=== PATIENT | female | born 2000 | race Caucasian/White ===

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

== ENCOUNTER 2018-03-08 13:05 | Emergency (ER) | payer OTHER ==
[2018-03-08 13:16] VITALS: BP 121/76
--- NOTE | 2018-03-08 14:15 | UC ---
Back Pain HPI - HPI Summary HPI Summary: HAS HAD SEVERAL MONTHS OF LOW LEVEL LOW BACK PAIN. STATES MAYBE STARTED AFTER FALLING OFF A HORSE. WAS NOT TOO BAD UNTIL TODAY WHEN SHE PUSHED A HEAVY PALLET AT WORK AND FELT SOMETHING POP IN THE LEFT LOW BACK. HAS SOME PAIN RADIATING DOWN THE BACK OF HER LEFT LEG. DENIES NUMBNESS/TINGLING. NO SADDLE ANESTHESIA OR WEAKNESS. NO LOSS OF BOWEL/BLADDER CONTROL. - History of Current Complaint Chief Complaint: UCBackPain Stated Complaint: BACK INJURY Time Seen by Provider: 03/08/18 13:37 Hx Obtained From: Patient Hx Last Menstrual Period: 02/21/18 Onset/Duration: Gradual Onset, Lasting Weeks, Worse Since - TODAY Timing: Constant Severity Initially: Mild Severity Currently: Moderate Pain Intensity: 8 Pain Scale Used: 0-10 Numeric Back Pain: Is Discrete @ - LEFT LOW BACK Character: Sharp Aggravating Factor(s): Movement Alleviating Factor(s): Rest Associated Signs And Symptoms: Negative: Swelling, Redness, Bruising, Weakness, Numbness, Tingling, Bladder Incontinence, Bowel Incontinence - Allergies/Home Medications Allergies/Adverse Reactions: Allergies Allergy/AdvReac Type Severity Reaction Status Date / Time No Known Allergies Allergy Verified 03/08/18 13:16 PMH/Surg Hx/FS Hx/Imm Hx Previously Healthy: Yes - Surgical History Surgical History: None - Family History Known Family History: Negative: Cardiac Disease, Hypertension, Diabetes - Social History Alcohol Use: None Substance Use Type: None Smoking Status (MU): Never Smoked Tobacco Have You Smoked in the Last Year: No - Immunization History Most Recent Influenza Vaccination: 2015 Review of Systems All Other Systems Reviewed And Are Negative: Yes Constitutional: Positive: Negative Skin: Positive: Negative Respiratory: Positive: Negative Cardiovascular: Positive: Negative Gastrointestinal: Positive: Negative Musculoskeletal: Positive: Arthralgia, Myalgia Physical Exam Triage Information Reviewed: Yes Appearance: Well-Appearing, No Pain Distress, Well-Nourished Vital Signs: Initial Vital Signs Temp 97.8 F 03/08/18 13:06 Pulse 80 03/08/18 13:06 Resp 17 03/08/18 13:06 BP 121/76 03/08/18 13:06 Pulse Ox 100 03/08/18 13:06 Vital Signs Reviewed: Yes Eyes: Positive: Conjunctiva Clear ENT: Positive: Hearing grossly normal Neck: Positive: Supple Respiratory: Positive: No respiratory distress, No accessory muscle use Cardiovascular: Positive: Pulses Normal Abdomen Description: Positive: Soft Musculoskeletal: Positive: ROM Intact, No Edema, Other: Neurological: Positive: Alert, Other: - POS LEFT STRAIGHT LEG RAISE Psychological: Positive: Normal Response To Family, Age Appropriate Behavior Skin: Negative: Rashes Diagnostics - Radiology LUMBAR SPINE XRAYS Radiology Interpretation Completed By: Radiologist Summary of Radiographic Findings: UNREMARKABLE Back Pain Course/Dx - Differential Dx/Diagnosis Provider Diagnoses: ACUTE LOW BACK STRAIN Discharge - Sign-Out/Discharge Documenting (check all that apply): Patient Departure All imaging exams completed and their final reports reviewed: Yes - Discharge Plan Condition: Stable Disposition: HOME Prescriptions: Cyclobenzaprine TAB* [Flexeril TAB*] 10 mg PO BID PRN #30 tab PRN Reason: Pain Naproxen [Naproxen 500 mg tab] 500 mg PO BID PRN #30 tablet PRN Reason: Pain Patient Education Materials: Low Back Strain (ED), Lower Back Exercises (ED) Referrals: Yon Duvall MD [Primary Care Provider] - If Needed Additional Instructions: LUMBAR SPINE XRAYS TODAY UNREMARKABLE. YOUR SYMPTOMS SHOULD IMPROVE SIGNIFICANTLY OVER THE NEXT 1-2 WEEKS. IF YOU DO NOT IMPROVE EXPECTED FOLLOW- UP WITH YOUR PCP. YOU MAY BENEFIT FROM MORE ADVANCED IMAGING AT THAT TIME. PHYSICAL THERAPY REFERRAL ALSO PROVIDED FOR YOU TO USE IF DESIRED. REST, HEAT, NAPROXEN NEEDED FOR DISCOMFORT. TAKE MUSCLE RELAXER BEFORE BED. BE SURE TO GO THROUGH SLOW RANGE OF MOTION AND STRETCHING EXERCISES DAILY YOU ARE ABLE TO PREVENT STIFFENING UP AND MAKING THE DISCOMFORT WORSE. GO TO THE ED WITHOUT FAIL IF YOU DEVELOP WORSENING NUMBNESS/TINGLING IN YOUR LEGS, NUMBNESS IN THE GENITAL REGION, LOSS OF BOWEL/BLADDER CONTROL, INTOLERABLE PAIN OR ANY OTHER CONCERNING SYMPTOMS. - Billing Disposition and Condition Condition: STABLE Disposition: Home
== END 2018-03-08 14:46 | disposition home or self-care (01) ==
LOC: UCEAST 13:05
DX: S39.012A Strain of muscle, fascia and tendon of lower back, initial encounter (principal); V80.010A Animal-rider injured by fall from or being thrown from horse in noncollision accident, initial encounter; Y92.9 Unspecified place or not applicable
CPT/HCPCS: 72100; 99212; G0463

== ENCOUNTER 2018-08-09 17:37 | Emergency (ER) | payer OTHER ==
[2018-08-09 17:52] VITALS: BP 132/83
--- NOTE | 2018-08-09 17:54 | UC ---
Ear Complaint HPI - HPI Summary HPI Summary: Sore throat and fever for 2-3 days. Patient states she has a history of strep throat usually about 6 times per year. - History of Current Complaint Chief Complaint: UCGeneralIllness Stated Complaint: SORE THROAT, EAR AND SINUS Time Seen by Provider: 08/09/18 17:53 Hx Obtained From: Patient Hx Last Menstrual Period: 08/09/2018 ?: No Onset/Duration: Gradual Onset Severity Initially: Moderate Severity Currently: Moderate Pain Intensity: 5 Aggravating Factors: Nothing Alleviating Factors: Nothing Associated Signs/Symptoms: Positive: URI Symptoms - Allergies/Home Medications Allergies/Adverse Reactions: Allergies Allergy/AdvReac Type Severity Reaction Status Date / Time No Known Allergies Allergy Verified 03/08/18 13:16 Home Medications: Home Medications Ibuprofen [Motrin Ib] 200 mg PO 08/09/18 [History] PMH/Surg Hx/FS Hx/Imm Hx Previously Healthy: Yes - Surgical History Surgical History: None - Family History Known Family History: Negative: Cardiac Disease, Hypertension, Diabetes - Social History Alcohol Use: None Substance Use Type: None Smoking Status (MU): Never Smoked Tobacco Have You Smoked in the Last Year: No - Immunization History Most Recent Influenza Vaccination: 2015 Review of Systems All Other Systems Reviewed And Are Negative: Yes Constitutional: Positive: Fever ENT: Positive: Sore Throat, Nasal Discharge Is Patient Immunocompromised?: No Physical Exam Triage Information Reviewed: Yes Appearance: Well-Appearing, No Pain Distress, Well-Nourished Vital Signs: Initial Vital Signs Temp 99.2 F 08/09/18 17:47 Pulse 94 08/09/18 17:47 Resp 16 08/09/18 17:47 BP 132/83 08/09/18 17:47 Pulse Ox 100 08/09/18 17:47 Vital Signs Reviewed: Yes Eye Exam: Normal ENT: Positive: Pharyngeal erythema, TMs normal, Tonsillar swelling, Tonsillar exudate - Minimal tonsillar exudate., Uvula midline. Negative: Trismus, Muffled voice, Hoarse voice Neck: Positive: Supple, Nontender, Enlarged Nodes @ - Bilateral tonsillar lymph node enlargement. Respiratory: Positive: Lungs clear, Normal breath sounds, No respiratory distress, No accessory muscle use Cardiovascular: Positive: RRR, No Murmur, Pulses Normal, Brisk Capillary Refill Abdomen Description: Positive: Nontender, No Organomegaly, Soft Bowel Sounds: Positive: Present Musculoskeletal: Positive: Strength Intact, ROM Intact Neurological: Positive: Alert, Muscle Tone Normal Psychological Exam: Normal Skin Exam: Normal Ear Complaint Course/Dx - Course Course Of Treatment: Rapid strep test: Negative. Her physical exam was consistent with tonsillitis therefore going to treat her with amoxicillin 875 mg by mouth twice a day 10 days, change her toothbrush in 24 hours - Differential Dx/Diagnosis Provider Diagnosis: Tonsillitis Discharge - Sign-Out/Discharge Documenting (check all that apply): Patient Departure All imaging exams completed and their final reports reviewed: No Studies - Discharge Plan Condition: Fair Disposition: HOME Prescriptions: Amoxicillin PO (*) [Amoxicillin 875 MG (*)] 875 mg PO BID 10 Days #20 tab Patient Education Materials: Tonsillitis (ED) Referrals: Yon Duvall MD [Primary Care Provider] - Additional Instructions: Increase fluids, Tylenol every 4 hours and Motrin every 8 hours for pain or fever. Warm saltwater gargles. Change your toothbrush in 24 hours. Follow-up with your primary care provider next week if no improvement. - Billing Disposition and Condition Condition: FAIR Disposition: Home
== END 2018-08-09 18:46 | disposition home or self-care (01) ==
LOC: UCEAST 17:37
DX: J03.90 Acute tonsillitis, unspecified (principal)
CPT/HCPCS: 87651; 99212; G0463

== ENCOUNTER 2018-11-18 10:42 | Emergency (ER) | payer OTHER ==
[2018-11-18 10:50] VITALS: BP 113/70
--- NOTE | 2018-11-18 11:53 | UC ---
FLU HPI - HPI Summary HPI Summary: 18 year old female with no PMH, no recent abx us presents with 2 days of sore throat, ear pain on right side, fatigue, body aches, GI upset this AM- diarrhea x 1. States fatigue and throat pain the worst. Denies sinus pain, decreased hearing. - History of Current Complaint Chief Complaint: UCGeneralIllness Stated Complaint: BODY ACHES/BILAT EAR PAIN Time Seen by Provider: 11/18/18 11:38 Hx Obtained From: Patient Hx Last Menstrual Period: 11/17/18 ?: No Onset/Duration: Sudden Onset, Lasting Days Severity Currently: Mild Severity Initially: Moderate Pain Intensity: 5 Pain Scale Used: 0-10 Numeric Associated Signs & Symptoms: Positive: Fever - 100, T Max - 100, F/C, Sore Throat, Diarrhea. Negative: Cough, Nasal Congestion, Headache, Vomiting - Allergy/Home Medications Allergies/Adverse Reactions: Allergies Allergy/AdvReac Type Severity Reaction Status Date / Time No Known Allergies Allergy Verified 11/18/18 10:50 Home Medications: Home Medications Levonorgestrel-Ethin Estradiol [Lessina-28 Tablet] 1 tab PO DAILY 11/18/18 [ History Confirmed 11/18/18] PMH/Surg Hx/FS Hx/Imm Hx Previously Healthy: Yes - Surgical History Surgical History: None - Family History Known Family History: Positive: Non-Contributory Negative: Cardiac Disease, Hypertension, Diabetes - Social History Alcohol Use: None Substance Use Type: None Smoking Status (MU): Never Smoked Tobacco Have You Smoked in the Last Year: No - Immunization History Most Recent Influenza Vaccination: 2016 Review of Systems All Other Systems Reviewed And Are Negative: Yes Constitutional: Positive: Fever - 100F, Chills, Fatigue Skin: Negative: Rash ENT: Positive: Sore Throat, Ear Ache. Negative: Nasal Discharge, Sinus Congestion, Sinus Pain/Tenderness Respiratory: Negative: Shortness Of Breath, Cough Is Patient Immunocompromised?: No Physical Exam Triage Information Reviewed: Yes Appearance: Well-Appearing, No Pain Distress, Well-Nourished Vital Signs: Initial Vital Signs Temp 98.8 F 11/18/18 10:47 Pulse 100 11/18/18 10:47 Resp 19 11/18/18 10:47 BP 113/70 11/18/18 10:47 Pulse Ox 100 07/29/19 10:47 Vital Signs Reviewed: Yes Eyes: Positive: Conjunctiva Clear ENT: Positive: Hearing grossly normal, Pharyngeal erythema - mild > L side, TMs normal, Tonsillar exudate, Uvula midline. Negative: TM bulging, TM dull, TM red , Tonsillar swelling, Sinus tenderness Neck: Positive: Supple, Nontender, No Lymphadenopathy, Other: - ttp over paraspinal muscles, trap b/l. Negative: Nuchal Rigidity, Enlarged Nodes @ Respiratory: Positive: Chest non-tender, Lungs clear, Normal breath sounds, No respiratory distress, No accessory muscle use. Negative: Respiratory distress, Rhonchi, Stridor, Wheezing, Expiration Cardiovascular: Positive: RRR Abdomen Description: Positive: Nontender, No Organomegaly, Soft. Negative: Splenomegaly Musculoskeletal Exam: Normal Neurological Exam: Normal Skin Exam: Normal Flu Course/Dx - Course Course Of Treatment: POssible mono vs viral illness Tests drawn to rule out Mononucleosis -results should be back tomorrow, can call for results, but will be called if positive. - Increase fluid intake - Motrin/ Tylenol as needed for pain - Over the counter medications for symptoms - Return or go to ER with fever > 101, increased headache, increased neck pain, or new symptoms - [employer] notes given - avoid contact sports - Differential Dx/Diagnosis Differential Diagnosis/HQI/PQRI: RSV, Upper Respiratory Infection Provider Diagnosis: Pharyngitis Discharge - Sign-Out/Discharge Documenting (check all that apply): Patient Departure All imaging exams completed and their final reports reviewed: No Studies - Discharge Plan Condition: Good Disposition: HOME Patient Education Materials: Mononucleosis (ED), Viral Syndrome (ED) Forms: *Work Release Referrals: No Primary Care Phys,NOPCP [Primary Care Provider] - Additional Instructions: Tests drawn to rule out Mononucleosis -results should be back tomorrow, can call for results, but will be called if positive. - Increase fluid intake - Motrin/ Tylenol as needed for pain - Over the counter medications for symptoms - Return or go to ER with fever > 101, increased headache, increased neck pain, or new symptoms - [employer] notes given - avoid contact sports - Billing Disposition and Condition Condition: GOOD Disposition: Home - Attestation Statements Provider Attestation: Per institutional requirements, I have reviewed the chart, however, I was not consulted specifically or made aware of this patient by the midlevel provider. I did not personally evaluate, interact with , or disposition this patient.
--- NOTE | 2018-11-19 08:13 | UC ---
- Progress Note Progress Note: Chart reviewed Monospot negative No change in plan Course/Dx - Diagnoses Provider Diagnoses: Pharyngitis Discharge - Sign-Out/Discharge Documenting (check all that apply): Post-Discharge Follow Up All imaging exams completed and their final reports reviewed: No Studies - Discharge Plan Condition: Good Disposition: HOME Patient Education Materials: Mononucleosis (ED), Viral Syndrome (ED) Forms: *Work Release Referrals: No Primary Care Phys,NOPCP [Primary Care Provider] - Additional Instructions: Tests drawn to rule out Mononucleosis -results should be back tomorrow, can call for results, but will be called if positive. - Increase fluid intake - Motrin/ Tylenol as needed for pain - Over the counter medications for symptoms - Return or go to ER with fever > 101, increased headache, increased neck pain, or new symptoms - [employer] notes given - avoid contact sports - Billing Disposition and Condition Condition: GOOD Disposition: Home
== END 2018-11-18 12:10 | disposition home or self-care (01) ==
LOC: UCEAST 10:42
DX: J02.9 Acute pharyngitis, unspecified (principal)
CPT/HCPCS: 36415; 86308; 99211; G0463

== ENCOUNTER 2018-11-21 13:01 | Emergency (ER) | payer OTHER ==
--- NOTE | 2018-11-21 14:09 | ED ---
Complex/Multi-Sys Presentation - HPI Summary HPI Summary: Pt. is a 18 y.o female who presents to the ER for ongoing fever, myalgias, and sore throat x 3-4 days. Pt. seen at a few days ago and had a negative mono. Pt. notes hx of recurrent strep. She denies cough, sob, cp, abd. pain, V/D, urinary sxs, headache, neck pain. No significant past medical hx. Sxs are mild in severity. Fever reduced with motrin. Denies recent tick bites or rash. - History Of Current Complaint Chief Complaint: EDFever Time Seen by Provider: 11/21/18 13:48 Hx Obtained From: Patient, Family/Bus Aide - Allergies/Home Medications Allergies/Adverse Reactions: Allergies Allergy/AdvReac Type Severity Reaction Status Date / Time No Known Allergies Allergy Verified 11/21/18 14:17 PMH/Surg Hx/FS Hx/Imm Hx Previously Healthy: Yes Endocrine/Hematology History: Denies: Hx Diabetes, Hx Thyroid Disease Cardiovascular History: Denies: Hx Hypercholesterolemia, Hx Hypertension, Hx Pacemaker/ICD, Hx Peripheral Vascular Disease Musculoskeletal History: Denies: Hx Arthritis, Hx Osteoporosis, Hx Scoliosis Sensory History: Denies: Hx Cataracts, Hx Contacts or Glasses, Hx Glaucoma, Hx Hearing Aid Opthamlomology History: Denies: Hx Cataracts, Hx Contacts or Glasses, Hx Glaucoma Neurological History: Denies: Hx Headaches, Hx Seizures, Hx Transient Ischemic Attacks (TIA), Other Neuro Impairments/Disorders Psychiatric History: Denies: Hx Anxiety, Hx Depression, Hx Panic Disorder Infectious Disease History: No Infectious Disease History: Denies: Traveled Outside the [place] in Last 30 Days - Family History Known Family History: Positive: Non-Contributory Negative: Cardiac Disease, Hypertension, Diabetes - Social History Occupation: Employed Full-time Lives: With Family Alcohol Use: None Substance Use Type: Reports: None Smoking Status (MU): Never Smoked Tobacco Have You Smoked in the Last Year: No Review of Systems Positive: Fever, Chills Positive: Sore Throat Cardiovascular: Negative Respiratory: Negative Negative: Shortness Of Breath, Cough Gastrointestinal: Negative Negative: Abdominal Pain, Vomiting, Diarrhea Genitourinary: Negative Negative: dysuria, flank pain Positive: Myalgia Skin: Negative Negative: Rash Neurological: Negative Negative: Headache All Other Systems Reviewed And Are Negative: Yes Physical Exam Triage Information Reviewed: Yes Vital Signs On Initial Exam: Initial Vitals Temp Pulse Resp BP Pulse Ox 99.0 F 93 16 120/82 100 11/21/18 13:19 11/21/18 13:19 11/21/18 13:19 11/21/18 13:19 11/21/18 13:19 Vital Signs Reviewed: Yes Appearance: Positive: Well-Appearing - Pt. sitting on chair in NAD. Mother present. Skin: Positive: Warm, Dry Head/Face: Positive: Normal Head/Face Inspection Eyes: Positive: Normal, EOMI, ANGUS, Conjunctiva Clear ENT: Positive: TMs normal, Other - Mild injection to oral pharynx with mild tonsilar edema. Uvula is midline without uvular deviation, trismus or muffled voice. Neck: Positive: Supple, Nontender, No Lymphadenopathy. Negative: Nuchal Rigidity Respiratory/Lung Sounds: Positive: Clear to Auscultation, Breath Sounds Present. Negative: Rales, Rhonchi, Wheezes Cardiovascular: Positive: Normal, RRR Musculoskeletal: Positive: Normal, Strength/ROM Intact Neurological: Positive: Normal, CN Intact II-III Psychiatric: Positive: Affect/Mood Appropriate Diagnostics - Vital Signs Vital Signs Temp Pulse Resp BP Pulse Ox 11/21/18 13:19 99.0 F 93 16 120/82 100 - Laboratory Result Diagrams: 11/21/18 14:21 11/21/18 14:21 Lab Statement: Any lab studies that have been ordered have been reviewed, and results considered in the medical decision making process. Complex Multi-Symp Course/Dx Course Of Treatment: Pt. presenting with ongoing fever. She notes fever has been around 102F. In ER pt. is afebrile with stable VS. PE is unremarkable. Given ongoing fever will check basic labs and rapid strep. Blood work is unremarkable other than elevated CRP. Negative strep. Pending lyme titer. Pt. noted to be laughing in room with her mother. Results discussed. Suspect viral etiology. Advised to continue supportive care. To f.u with PCP in 2-3 days is sxs continue. Will call if lyme titer is positive. Pt. and mother understand and agree with plan. - Diagnoses Provider Diagnoses: Viral syndrome Discharge - Sign-Out/Discharge Documenting (check all that apply): Patient Departure Patient Received Moderate/Deep Sedation with Procedure: No - Discharge Plan Condition: Good Disposition: HOME Patient Education Materials: Viral Syndrome (ED) Referrals: Care [facility] [Outside] Additional Instructions: Schedule a follow up appointment with PCP in 2-3 days Increase fluids and rest Tylenol or Motrin for pain and fever as directed Will call if Lyme test is positive Return to ER if symptoms change or worsen. - Billing Disposition and Condition Condition: GOOD Disposition: Home
[2018-11-21 14:36] LABS: ABS Lymphocytes 1.6 10^3/ul (1.0-4.8); ABS Monocytes 0.8 10^3/ul (0-0.8); ABS Neutrophils 6.1 10^3/ul (1.5-7.7); Eosinophil % 0.2 %; Hematocrit 37 % (35-47); Hemoglobin 13.4 g/dL (12.0-16.0); Lymphocyte % 18.3 %; Mean Corpuscular HGB Conc 36 g/dL (31-36); Mean Corpuscular Hemoglobin 32 pg (27-31); Mean Corpuscular Volume 90 fL (80-97); Mean Platelet Volume 7.5 fL (7.4-10.4); Platelet Count 190 10^3/uL (150-450); Red Blood Count 4.17 10^6 /uL (3.70-4.87); Red Cell Distribution Width 12 % (10-15); White Blood Count 8.5 10^3/uL (3.5-10.8)
[2018-11-21 14:37] LABS: Rapid Strep Molecular Negative (Negative)
[2018-11-21 14:45] LABS: Urine Appearance Cloudy; Urine Bacteria Absent (Absent); Urine Bilirubin Negative (Negative); Urine Blood 1+ (Negative); Urine Color Yellow; Urine Glucose Negative (Negative); Urine Ketones Negative (Negative); Urine Nitrite Negative (Negative); Urine Protein 1+(30 mg/dL) (Negative); Urine Red Blood Cell 1+(3-5/hpf) (Absent); Urine Specific Gravity 1.018 (1.010-1.030); Urine Squamous Epithelial Cell Present (Absent); Urine Urobilinogen Negative (Negative); Urine White Blood Cell 1+(6-10/hpf) (Absent)
[2018-11-21 14:54] LABS: ALT 9 U/L (7-52); AST 11 U/L (13-39); Albumin 4.7 g/dL (3.2-5.2); Albumin/Globulin Ratio 1.4 (1-3); Alkaline Phosphatase 34 U/L (34-104); Anion Gap 7 mmol/L (2-11); BUN/Creatinine Ratio 9.6 (8-20); Blood Urea Nitrogen 8 mg/dL (6-24); C Reactive Protein 84.66 mg/L (<8.01); CO2 Carbon Dioxide 26 mmol/L (22-32); Calcium 9.8 mg/dL (8.6-10.3); Chloride 103 mmol/L (101-111); EGFR Non-African American 87.6 (>60); Globulin 3.3 g/dL (2-4); Glucose 106 mg/dL (70-100); Potassium 3.7 mmol/L (3.5-5.0); Sodium 136 mmol/L (135-145)
[2018-11-21 15:00] LABS: HCG Pregnancy < 0.60 mIU/mL
[2018-11-21 15:28] VITALS: BP 118/70
[2018-11-22 23:04] LABS: B garinii/B afzelii PCR Negative (Negative); B mayonii PCR Negative (Negative)
== END 2018-11-21 15:26 | disposition home or self-care (01) ==
LOC: ED 13:01
DX: B34.9 Viral infection, unspecified (principal)
CPT/HCPCS: 36415; 80053; 81003; 81015; 84702; 85025; 86140; 87086; 87476; 87651; 87798; 99282

== ENCOUNTER 2019-05-29 10:01 | Emergency (ER) | payer OTHER ==
[2019-05-29 10:18] VITALS: BP 117/68
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
== END 2019-05-29 12:10 | disposition home or self-care (01) ==
LOC: UCEAST 10:01
DX: S50.01XA Contusion of right elbow, initial encounter (principal); W22.8XXA Striking against or struck by other objects, initial encounter; Y93.I9 Activity, other involving external motion; Y92.9 Unspecified place or not applicable
CPT/HCPCS: 99213; G0463

== ENCOUNTER 2020-05-17 14:15 | Inpatient (IN) ==
[2020-05-17 15:26] LABS: ABS Lymphocytes 1.9 10^3/ul (1.0-4.8); ABS Monocytes 0.4 10^3/ul (0-0.8); ABS Neutrophils 3.8 10^3/ul (1.5-7.7); Eosinophil % 0.3 %; Hematocrit 39 % (35-47); Hemoglobin 13.4 g/dL (12.0-16.0); Lymphocyte % 30.4 %; Mean Corpuscular HGB Conc 35 g/dL (31-36); Mean Corpuscular Hemoglobin 32 pg (27-31); Mean Corpuscular Volume 91 fL (80-97); Mean Platelet Volume 7.7 fL (7.4-10.4); Nucleated Red Blood Cells % 0.2; Platelet Count 268 10^3/uL (150-450); Red Blood Count 4.27 10^6 /uL (3.70-4.87); Red Cell Distribution Width 13 % (10-15); White Blood Count 6.1 10^3/uL (3.5-10.8)
[2020-05-17] MEDS ORDERED: Nicotine GUM 4MG FRUIT FLAVOR PO PRN (15:31)
[2020-05-17] MEDS ORDERED: Al Hydrox/Mg Hydrox/Simet LIQ 30 ML UDC PO PRN (15:42)
[2020-05-17 15:43] LABS: Urine Appearance Cloudy; Urine Bilirubin Negative (Negative); Urine Blood 1+ (Negative); Urine Color Yellow; Urine Glucose Negative (Negative); Urine Ketones Trace (Negative); Urine Nitrite Negative (Negative); Urine Protein 1+(30 mg/dL) (Negative); Urine Specific Gravity 1.027 (1.010-1.030); Urine Urobilinogen Negative (Negative)
[2020-05-17 15:49] LABS: HCG Pregnancy < 0.60 mIU/mL
[2020-05-17 15:53] LABS: Urine Bacteria Absent (Absent); Urine Red Blood Cell Trace(0-2/hpf) (Absent); Urine Squamous Epithelial Cell Present (Absent); Urine White Blood Cell Trace(0-5/hpf) (Absent)
[2020-05-17 16:00] LABS: TSH Ultra Thyroid Stim Horm 1.49 mcIU/mL (0.34-5.60)
[2020-05-17 16:07] LABS: ALT 8 U/L (7-52); AST 14 U/L (13-39); Albumin 4.9 g/dL (3.2-5.2); Albumin/Globulin Ratio 1.8 (1-3); Alkaline Phosphatase 33 U/L (34-104); Anion Gap 9 mmol/L (2-11); Blood Urea Nitrogen 15 mg/dL (6-24); CO2 Carbon Dioxide 22 mmol/L (22-32); Calcium 9.7 mg/dL (8.6-10.3); Chloride 107 mmol/L (101-111); EGFR African American 98.1 (>60); EGFR Non-African American 81.1 (>60); Globulin 2.7 g/dL (2-4); Glucose 111 mg/dL (70-100); Potassium 3.9 mmol/L (3.5-5.0); Sodium 138 mmol/L (135-145); Total Protein 7.6 g/dL (6.4-8.9)
[2020-05-17 16:16] LABS: Acetaminophen < 15 mcg/mL; Alcohol, S < 10 mg/dL (<10); Salicylate < 2.50 mg/dL (<30)
[2020-05-17 16:23] LABS: Urine Benzodiazepine Screen None Detected (None Detect); Urine Cannabinoids Screen Presumptive Positive (None Detect); Urine Opiates Screen None Detected (None Detect)
[2020-05-18 07:37] LABS: HDL Cholesterol 33.4 mg/dL
[2020-05-18] MEDS: Vitamin THERAPEUTIC TAB PO SCH (09:25)
[2020-05-18] MEDS: LEVONORGESTREL ETHINYL ESTRADIOL PO SCH (09:25)
[2020-05-18] MEDS: Nicotine PATCH 21 MG/24 HR PATCH TRANSDERM SCH (12:57)
[2020-05-19 08:10] VITALS: BP 127/58
[2020-05-19] MEDS: Nicotine PATCH 21 MG/24 HR PATCH TRANSDERM SCH (08:10)
[2020-05-19] MEDS: LEVONORGESTREL ETHINYL ESTRADIOL PO SCH (08:12)
[2020-05-19] MEDS: Vitamin THERAPEUTIC TAB PO SCH (08:12)
== END 2020-05-19 13:09 | disposition home or self-care (01) | DRG 751 ==
LOC: ED 14:15 → BSU 15:42
PROVIDERS: ADMIT Psychiatry & Neurology Psychiatry; ATTEND Psychiatry & Neurology Psychiatry